=== PATIENT | male | born 1955 | race Two or more races ===

== ENCOUNTER 2020-10-07 12:22 | Outpatient (CLI) | payer OTHER | END 2020-10-07 12:33 | disposition home or self-care (01) | LOC: RAD 12:22 | PROVIDERS: ATTEND Orthopaedic Surgery | DX: S92.415A Nondisplaced fracture of proximal phalanx of left great toe, initial encounter for closed fracture (principal) ==

== ENCOUNTER 2020-11-18 12:40 | Outpatient (CLI) | payer OTHER | END 2020-11-18 12:51 | disposition home or self-care (01) | LOC: RAD 12:40 | PROVIDERS: ATTEND Orthopaedic Surgery | DX: S92.415D Nondisplaced fracture of proximal phalanx of left great toe, subsequent encounter for fracture with routine healing (principal) ==

== ENCOUNTER 2021-12-15 08:36 | Outpatient (CLI) | payer OTHER | END 2021-12-15 08:48 | disposition home or self-care (01) | LOC: RAD 08:36 | PROVIDERS: ATTEND Internal Medicine Rheumatology | DX: M15.8 Other polyosteoarthritis (principal) ==

== ENCOUNTER 2022-05-08 08:47 | Outpatient (CLI) | payer OTHER | END 2022-05-08 08:54 | disposition home or self-care (01) | LOC: SONOGRAMA 08:47 | PROVIDERS: ATTEND Physical Medicine & Rehabilitation | DX: M25.521 Pain in right elbow (principal) ==

== ENCOUNTER 2024-01-07 09:04 | Outpatient (CLI) | payer OTHER | END 2024-01-07 09:11 | disposition home or self-care (01) | LOC: RAD 09:04 | PROVIDERS: ATTEND Orthopaedic Surgery | DX: M79.671 Pain in right foot (principal) ==

== ENCOUNTER 2024-02-05 07:46 | Outpatient (CLI) | payer OTHER | END 2024-02-05 07:52 | disposition home or self-care (01) | LOC: RAD 07:46 | PROVIDERS: ATTEND Orthopaedic Surgery | DX: M79.671 Pain in right foot (principal); S92.511A Displaced fracture of proximal phalanx of right lesser toe(s), initial encounter for closed fracture ==